=== PATIENT | female | born 1980 | race Caucasian/White ===

== ENCOUNTER 2021-10-20 19:08 | Emergency (ER) | payer BC ==
[~2021-10-20] VITALS: Ht 157.5 cm; Wt 113.0 kg
[~2021-10-20 19:08] MED LIST: SUMATRIPTAN SUC25 MG PO
[2021-10-20] MEDS ORDERED: VERAPAMIL ER P200 MG PO (19:27)
[2021-10-20] MEDS ORDERED: VITAMIN D350 MCG PO (19:28)
[2021-10-20] MEDS ORDERED: XYZAL5 MG (19:28)
[2021-10-20] MEDS ORDERED: PERCOCET 5-3251 EACH PO (23:13)
== END 2021-10-20 23:40 | disposition home or self-care (01) ==
LOC: ED 19:08
DX: N13.2 Hydronephrosis with renal and ureteral calculous obstruction (principal); I10 Essential (primary) hypertension; Z88.0 Allergy status to penicillin; Z88.1 Allergy status to other antibiotic agents; Z88.2 Allergy status to sulfonamides; Z88.5 Allergy status to narcotic agent; Z88.8 Allergy status to other drugs, medicaments and biological substances; Z79.899 Other long term (current) drug therapy
CPT/HCPCS: 36415; 74176; 80053; 81001; 83690; 84703; 85025; 96374; 99284-25; A9270; J1885; J7030

== ENCOUNTER 2024-01-23 06:00 | Emergency (ER) | payer OTHER, BC ==
[~2024-01-23] VITALS: Ht 157.5 cm; Wt 110.0 kg
[~2024-01-23 06:00] MED LIST changes: +PERCOCET 5-3251 EACH PO; +VERAPAMIL ER P200 MG PO; +VITAMIN D350 MCG PO; +XYZAL5 MG
[2024-01-23] MEDS ORDERED: OXYCODONE/APAP 5/325 TAB PO ONE (06:15)
[2024-01-23] MEDS ORDERED: KETOROLAC TROMETHAMINE 60 MG/2 ML VIAL IM ONE (06:15)
[2024-01-23] MEDS ORDERED: ONDANSETRON 4 MG HOME.PACK SL ONE (06:30)
[2024-01-23] MEDS ORDERED: HYDROmorphone HCL 1 MG/ML SYR IM ONE (07:00)
[2024-01-23] MEDS ORDERED: propofoL 200 MG/20 ML VIAL IV ONE (07:15)
[2024-01-23] MEDS ORDERED: PERCOCET 5-3251 EACH PO (07:15)
[2024-01-23] MEDS ORDERED: OXYCODONE/ACETAMINOPHEN 1 TAB HOME.PACK PO ONE (07:30)
[2024-01-23 08:27] VITALS: BP 143/99
== END 2024-01-23 08:30 | disposition home or self-care (01) ==
LOC: ED 06:00
DX: S43.084A Other dislocation of right shoulder joint, initial encounter (principal); S69.81XA Other specified injuries of right wrist, hand and finger(s), initial encounter; W31.89XA Contact with other specified machinery, initial encounter; I10 Essential (primary) hypertension; Z79.899 Other long term (current) drug therapy; Z88.0 Allergy status to penicillin; Z88.1 Allergy status to other antibiotic agents; Z88.5 Allergy status to narcotic agent; Z88.2 Allergy status to sulfonamides; Z91.040 Latex allergy status
CPT/HCPCS: 23650; 73030; 73110; 99283-25; A9270; J1885; J2704